=== PATIENT | male | born 1950 | race Caucasian/White ===

== ENCOUNTER 2017-10-06 05:19 | Inpatient (IN) | payer OTHER ==
[~2017-10-06] VITALS: Ht 160 cm; Wt 136.3 kg
[~2017-10-06 05:19] MED LIST: AMLODIPINE BESYL5 MG PO; AMPICILLIN500 M1 PO; Bactrim,Septra Singl PO; COZAAR50 MG PO; FLOMAX0.4 MG PO; INDOMETHACIN75 MG PO; IRON325 M1 PO; K-DUR20 MEQ PO; MAXZIDE 75/501 EACH PO; NEXIUM40 MG PO; TYLENOL EXTRA500 MG PO; ULTRAM50 MG PO; VESICARE5 MG PO
[2017-10-06 05:55] VITALS: BP 118/71
[2017-10-06 11:14] VITALS: BP 99/58
[2017-10-06 13:18] VITALS: BP 153/71
[2017-10-06 15:19] VITALS: BP 125/63
[2017-10-06 18:38] VITALS: BP 110/71
[2017-10-06 20:36] VITALS: BP 116/58
[2017-10-07 00:20] VITALS: BP 93/56
[2017-10-07 04:23] VITALS: BP 106/57
[2017-10-07 07:07] LABS: HEMATOCRIT 36.8 % (38.0-50.0); HEMOGLOBIN 11.9 G/DL (12.5-16.6); MCV 94.8 FL (86-99)
[2017-10-07 07:34] LABS: CHLORIDE 100 MEQ/L (99-109); CREATININE 1.1 MG/DL (0.6-1.3); GFR ESTIMATE (CALCULATED) > 59 mL/min/ (58.99-99999); GLUCOSE 116 mg/dL (70-99); POTASSIUM 4.6 MEQ/L (3.7-5.4); SODIUM 138 MEQ/L (136-147); UREA NITROGEN (BUN) 23 mg/dL (9-23)
[2017-10-07 08:00] VITALS: BP 125/71
[2017-10-07] MEDS ORDERED: BENADRYL25 MG PO (09:25)
[2017-10-07] MEDS ORDERED: OXYCODONE HCL5 MG PO (09:27)
[2017-10-07] MEDS ORDERED: ELIQUIS2.5 MG PO (09:27)
[2017-10-07] MEDS ORDERED: CELECOXIB200 MG PO (09:27)
[2017-10-07] MEDS ORDERED: BISACODYL5 MG PO (09:27)
[2017-10-07 12:00] VITALS: BP 114/62
[2017-10-07 15:48] VITALS: BP 116/73
[2017-10-07 20:13] VITALS: BP 124/61
[2017-10-08 00:29] VITALS: BP 135/68
[2017-10-08 04:25] VITALS: BP 126/59
[2017-10-08 05:49] LABS: HEMATOCRIT 36.1 % (38.0-50.0); HEMOGLOBIN 11.6 G/DL (12.5-16.6)
[2017-10-08 08:05] VITALS: BP 118/68
[2017-10-08 11:40] VITALS: BP 111/68
== END 2017-10-08 14:20 | DRG 470 ==
LOC: 2SOUTH 05:19 → ENRESERV 07:19 → 2SOUTH 09:54 → 3WEST 10:58 → 2SOUTH 15:06 → 3WEST 10-08 14:20
PROVIDERS: Orthopaedic Surgery
PROC: 0SRC0J9 Replacement of Right Knee Joint with Synthetic Substitute, Cemented, Open Approach (ICD-10-PCS; principal; 2017-10-06)
DX: M17.11 Unilateral primary osteoarthritis, right knee (principal); I10 Essential (primary) hypertension; M10.9 Gout, unspecified; K21.9 Gastro-esophageal reflux disease without esophagitis; E66.9 Obesity, unspecified; Z68.42 Body mass index [BMI] 45.0-49.9, adult; Z87.891 Personal history of nicotine dependence
CPT/HCPCS: 80048; 85014; 85018; C1713; C1776; J0131; J0690; J1885; J2250; J2405; J2795; J7050; J7120

== ENCOUNTER 2017-11-25 17:38 | Inpatient (IN) | payer OTHER ==
[~2017-11-25] VITALS: Ht 172.7 cm; Wt 139.3 kg
[~2017-11-25 17:38] MED LIST changes: +BENADRYL25 MG PO; +BISACODYL5 MG PO; +CELECOXIB200 MG PO; +ELIQUIS2.5 MG PO; +OXYCODONE HCL5 MG PO
[2017-11-25 21:07] LABS: HEMATOCRIT 37.5 % (38.0-50.0); HEMOGLOBIN 12.5 G/DL (12.5-16.6); MCH 30.9 PG (29.0-34.0); MCHC 33.3 G/DL (30.0-36.0); MCV 92.8 FL (86-99); PLATELET COUNT 339 K/uL (156-360); RBC DIS.WIDTH-CV 12.8 % (11.8-14.6); RBC DIS.WIDTH-SD 43.8 % (39-53); RED BLOOD COUNT 4.04 M/uL (4.00-5.50)
[2017-11-25] MEDS ORDERED: NEXIUM 24HR20 M2 PO (21:09)
[2017-11-25] MEDS ORDERED: INDOCIN SR75 MG PO (21:09)
[2017-11-25 21:26] LABS: INTER. NORMALIZED RATIO 1.2
[2017-11-25 21:34] LABS: ALBUMIN 4.1 g/dL (3.2-4.8); CHLORIDE 104 mEq/L (99-109); POTASSIUM 4.4 mEq/L (3.7-5.4); SODIUM 142 mEq/L (136-147)
[2017-11-25 21:37] LABS: GLUCOSE 119 mg/dL (70-99); TOTAL PROTEIN 7.6 g/dL (6.4-8.3)
[2017-11-25 21:39] LABS: TOTAL BILIRUBIN 0.8 mg/dL (0.0-1.0)
[2017-11-25 21:40] LABS: ALKALINE PHOSPHATASE 122 IU/L (3-129); CREATININE 1.1 mg/dL (0.6-1.3); GFR ESTIMATE (CALCULATED) > 59 mL/min/ (58.99-99999)
[2017-11-25 21:41] LABS: UREA NITROGEN (BUN) 22 mg/dL (9-23)
[2017-11-25 21:42] LABS: AST (GOT) 17 IU/L (2-34)
[2017-11-25 21:43] LABS: ALT (GPT) 12 IU/L (3-49)
[2017-11-26 14:15] VITALS: BP 124/58
[2017-11-26 15:40] VITALS: BP 116/62
[2017-11-26 20:16] VITALS: BP 119/64
[2017-11-27 00:01] VITALS: BP 132/76
[2017-11-27 04:19] VITALS: BP 134/81
[2017-11-27 07:50] VITALS: BP 127/68
[2017-11-27 11:38] VITALS: BP 111/64
[2017-11-27 18:15] VITALS: BP 117/61
[2017-11-27 20:40] VITALS: BP 124/66
[2017-11-28 04:27] VITALS: BP 111/55
[2017-11-28 07:00] LABS: HEMATOCRIT 32.7 % (38.0-50.0); MCV 93.4 FL (86-99)
[2017-11-28 07:04] LABS: HEMOGLOBIN 10.4 G/DL (12.5-16.6)
[2017-11-28 07:15] LABS: CHLORIDE 99 MEQ/L (99-109); GFR ESTIMATE (CALCULATED) > 59 mL/min/ (58.99-99999); GLUCOSE 109 mg/dL (70-99); POTASSIUM 3.7 MEQ/L (3.7-5.4); SODIUM 135 MEQ/L (136-147); UREA NITROGEN (BUN) 21 mg/dL (9-23)
[2017-11-28 08:00] VITALS: BP 90/52
[2017-11-28 16:42] VITALS: BP 116/69
[2017-11-29 00:35] VITALS: BP 103/57
[2017-11-29 06:53] LABS: HEMATOCRIT 30.2 % (38.0-50.0); HEMOGLOBIN 9.8 G/DL (12.5-16.6); MCV 93.5 FL (86-99)
[2017-11-29 08:25] VITALS: BP 103/63
[2017-11-29 16:46] VITALS: BP 116/61
[2017-11-30 00:02] VITALS: BP 127/57
[2017-11-30] MEDS ORDERED: CELECOXIB200 MG PO (09:17)
[2017-11-30] MEDS ORDERED: ELIQUIS2.5 MG PO (09:17)
[2017-11-30] MEDS ORDERED: OXYCODONE HCL5 MG PO (09:17)
[2017-11-30 13:03] VITALS: BP 106/63
== END 2017-11-30 15:10 | disposition home health service (06) | DRG 467 ==
LOC: MIC 17:38 → EME 17:38 → EDOF 22:29 → ENRESERV 22:29 → 3EAST 22:29 → ENRESERV 11-26 12:05 → 3EAST 11-26 13:11
PROVIDERS: Emergency Medicine; Orthopaedic Surgery
DX: T84.022A Instability of internal right knee prosthesis, initial encounter (principal); Z68.42 Body mass index [BMI] 45.0-49.9, adult; S83.014A Lateral dislocation of right patella, initial encounter; S83.121A Posterior subluxation of proximal end of tibia, right knee, initial encounter; Z87.891 Personal history of nicotine dependence; E66.9 Obesity, unspecified; Y83.8 Other surgical procedures as the cause of abnormal reaction of the patient, or of later complication, without mention of misadventure at the time of the procedure
CPT/HCPCS: 71046; 80048; 80053; 85014; 85018; 85027; 85610; 86850; 86900; 86901; 87070; 87075; 87205; 93005; 94799; 99281; 99285; C1713; C1776; J0690; J1170; J1885; J2250; J2405; J2795; J3480; J7050; J7120

== ENCOUNTER 2017-11-30 19:24 | Emergency (ER) | payer OTHER ==
[~2017-11-30] VITALS: Ht 172.7 cm; Wt 143.5 kg
[~2017-11-30 19:24] MED LIST changes: +INDOCIN SR75 MG PO; +NEXIUM 24HR20 M2 PO
[2017-11-30 20:41] VITALS: BP 115/70
== END 2017-11-30 21:10 | disposition home or self-care (01) ==
LOC: EME → EDBD 19:24 → EME 19:24
DX: L76.22 Postprocedural hemorrhage of skin and subcutaneous tissue following other procedure (principal); Z96.651 Presence of right artificial knee joint; I10 Essential (primary) hypertension; Z87.891 Personal history of nicotine dependence
CPT/HCPCS: 99281; 99284

== ENCOUNTER 2017-12-28 16:32 | Inpatient (IN) | payer OTHER ==
[~2017-12-28] VITALS: Ht 172.7 cm; Wt 137.3 kg
[2017-12-28 17:02] LABS: HEMATOCRIT 35.4 % (38.0-50.0); HEMOGLOBIN 11.5 G/DL (12.5-16.6); MCH 29.7 PG (29.0-34.0); MCHC 32.5 G/DL (30.0-36.0); MCV 91.5 FL (86-99); PLATELET COUNT 278 K/uL (156-360); RBC DIS.WIDTH-CV 13.9 % (11.8-14.6); RBC DIS.WIDTH-SD 46.3 % (39-53); RED BLOOD COUNT 3.87 M/uL (4.00-5.50); WHITE BLOOD COUNT 11.8 K/uL (4.1-10.2)
[2017-12-28 17:17] LABS: CHLORIDE 104 mEq/L (99-109); POTASSIUM 3.6 mEq/L (3.7-5.4); SODIUM 141 mEq/L (136-147)
[2017-12-28 17:19] LABS: GLUCOSE 84 mg/dL (70-99)
[2017-12-28 17:23] LABS: CREATININE 0.8 mg/dL (0.6-1.3); GFR ESTIMATE (CALCULATED) > 59 mL/min/ (58.99-99999)
[2017-12-28 17:24] LABS: UREA NITROGEN (BUN) 17 mg/dL (9-23)
[2017-12-28] MEDS ORDERED: CELEBREX200 MG PO (17:32)
[2017-12-28] MEDS ORDERED: LASIX40 MG PO (17:35)
[2017-12-28 20:11] VITALS: BP 140/75
[2017-12-28 20:15] VITALS: BP 140/75
[2017-12-28 23:07] VITALS: BP 130/60
[2017-12-29 03:34] VITALS: BP 137/71
[2017-12-29 08:14] VITALS: BP 119/74
[2017-12-29 10:05] LABS: COMMENTS - BLOOD GASES A+C+; DEVICE RA; SITE RR; TOTAL RESP RATE 16 resp/min
[2017-12-29 10:06] LABS: BICARBONATE 30.6 mEq/L (22-26); CARBOXY HGB 1.9 % (0-5); METHEMOGLOBIN 1.1 % (0-1.5); PCO2 44 mm Hg (35-45); PO2 63 mm Hg (80-100); pH 7.45 (7.35-7.45)
[2017-12-29 11:17] LABS: INTER. NORMALIZED RATIO 1.2
[2017-12-29 11:38] LABS: HDL CHOLESTEROL 41 MG/DL (Desirable>=40); LDL CHOLESTEROL 61 mg/dL (Desirable<100); NON-HDL CHOLESTEROL 80 mg/dL (Desirable<160); TOTAL CHOLESTEROL 121 mg/dL (Desirable<200); TRIGLYCERIDES 95 MG/DL (Normal: <150)
[2017-12-29 11:49] LABS: THYROTROPIN (TSH) 1.8 MIU/L (0.4-5.5)
[2017-12-29 13:09] LABS: HEMOGLOBIN A1c (GLYCOHEMOGLOB) 5.4 % (Below 5.7)
[2017-12-29 15:37] VITALS: BP 135/69
[2017-12-29 19:45] VITALS: BP 142/84
[2017-12-29 23:26] VITALS: BP 144/74
[2017-12-30 03:19] VITALS: BP 132/65
[2017-12-30 06:41] LABS: BASOPHIL (%) 0.4 % (0-1); BASOPHIL COUNT 0.1 K/uL (0-0.1); EOSINOPHIL (%) 1.6 % (0-5); EOSINOPHIL COUNT 0.2 K/uL (0-0.3); HEMATOCRIT 32.5 % (38.0-50.0); HEMOGLOBIN 10.4 G/DL (12.5-16.6); IMMATURE GRANULOCYTE (%) 0.5 % (0.0-0.7); LYMPHOCYTE (%) 12.7 % (15-42); LYMPHOCYTE COUNT 1.6 K/uL (1.0-2.8); MCH 29.3 PG (29.0-34.0); MCV 91.5 FL (86-99); MONOCYTE (%) 8.4 % (3-12); MONOCYTE COUNT 1.1 K/uL (0-0.8); NEUTROPHIL (%) 76.4 % (45-76); NEUTROPHIL COUNT 9.7 K/uL (1.8-6.4); PLATELET COUNT 271 K/uL (156-360); RBC DIS.WIDTH-CV 13.6 % (11.8-14.6); RBC DIS.WIDTH-SD 46.3 % (39-53); RED BLOOD COUNT 3.55 M/uL (4.00-5.50); WHITE BLOOD COUNT 12.7 K/uL (4.1-10.2)
[2017-12-30 07:06] LABS: CHLORIDE 104 MEQ/L (99-109); CREATININE 0.7 MG/DL (0.6-1.3); GFR ESTIMATE (CALCULATED) > 59 mL/min/ (58.99-99999); GLUCOSE 104 mg/dL (70-99); POTASSIUM 4.2 MEQ/L (3.7-5.4); SODIUM 139 MEQ/L (136-147); UREA NITROGEN (BUN) 11 mg/dL (9-23)
[2017-12-30 07:16] VITALS: BP 109/58
[2017-12-30 11:04] VITALS: BP 115/67
[2017-12-30 15:09] VITALS: BP 132/71
[2017-12-31 00:13] VITALS: BP 124/70
[2017-12-31 06:02] LABS: BASOPHIL (%) 0.4 % (0-1); BASOPHIL COUNT 0.1 K/uL (0-0.1); EOSINOPHIL COUNT 0.4 K/uL (0-0.3); HEMATOCRIT 32.4 % (38.0-50.0); HEMOGLOBIN 10.4 G/DL (12.5-16.6); IMMATURE GRANULOCYTE (%) 0.5 % (0.0-0.7); LYMPHOCYTE (%) 11.2 % (15-42); LYMPHOCYTE COUNT 1.6 K/uL (1.0-2.8); MCH 29.1 PG (29.0-34.0); MCHC 32.1 G/DL (30.0-36.0); MCV 90.8 FL (86-99); MONOCYTE (%) 8.9 % (3-12); MONOCYTE COUNT 1.2 K/uL (0-0.8); NEUTROPHIL COUNT 10.5 K/uL (1.8-6.4); PLATELET COUNT 258 K/uL (156-360); RBC DIS.WIDTH-CV 13.8 % (11.8-14.6); RBC DIS.WIDTH-SD 45.8 % (39-53); RED BLOOD COUNT 3.57 M/uL (4.00-5.50); WHITE BLOOD COUNT 13.8 K/uL (4.1-10.2)
[2017-12-31 06:23] LABS: CHLORIDE 102 MEQ/L (99-109); CREATININE 0.7 MG/DL (0.6-1.3); GFR ESTIMATE (CALCULATED) > 59 mL/min/ (58.99-99999); GLUCOSE 109 mg/dL (70-99); POTASSIUM 3.9 MEQ/L (3.7-5.4); SODIUM 135 MEQ/L (136-147); UREA NITROGEN (BUN) 12 mg/dL (9-23)
[2017-12-31 07:37] VITALS: BP 132/69
[2017-12-31] MEDS ORDERED: OXYCODONE HCL5 MG PO (09:02)
[2017-12-31 16:28] VITALS: BP 135/71
== END 2017-12-31 16:56 | DRG 467 ==
LOC: EME 16:32 → 3EAST 18:15 → EDOF 18:15 → ENRESERV 18:20 → 3EAST 19:48
PROVIDERS: Emergency Medicine; Internal Medicine; Internal Medicine Cardiovascular Disease; Orthopaedic Surgery
PROC: 0SWC0JC Revision of Synthetic Substitute in Right Knee Joint, Patellar Surface, Open Approach (ICD-10-PCS; principal; 2017-12-29)
DX: T84.022A Instability of internal right knee prosthesis, initial encounter (principal); Y83.1 Surgical operation with implant of artificial internal device as the cause of abnormal reaction of the patient, or of later complication, without mention of misadventure at the time of the procedure; M24.461 Recurrent dislocation, right knee; R26.2 Difficulty in walking, not elsewhere classified; M25.561 Pain in right knee; E66.2 Morbid (severe) obesity with alveolar hypoventilation; Z68.42 Body mass index [BMI] 45.0-49.9, adult; I11.0 Hypertensive heart disease with heart failure; I50.30 Unspecified diastolic (congestive) heart failure; K21.9 Gastro-esophageal reflux disease without esophagitis; M10.9 Gout, unspecified; Z91.19 Patient's noncompliance with other medical treatment and regimen; Z87.891 Personal history of nicotine dependence
CPT/HCPCS: 36600; 71045; 73560; 80048; 80061; 82803; 83036; 83880; 84443; 85014; 85018; 85025; 85027; 85610; 85730; 86850; 86900; 86901; 87070; 87075; 87205; 93005; 93306; 99281; 99284; C1713; J0690; J1885; J1940; J3010; J7050; J7120